=== PATIENT | female | born 1945 | race Caucasian/White ===

== ENCOUNTER 2024-01-16 19:07 | Emergency (ER) | payer MEDICARE, OTHER, SELFPAY ==
--- NOTE | 2024-01-16 18:58 | CT_ITS ---
PROCEDURE INFORMATION: Exam: CTA Neck With Contrast Exam date and time: 01/16/2024 7:03 PM Age: 78 years old Clinical indication: Stroke-like symptoms; Altered mental status/memory loss; Additional info: Possible stroke TECHNIQUE: Imaging protocol: Computed tomographic angiography of the neck with contrast. Exam focused on the cervical segments of the vasculature. 3D rendering (Not supervised by radiologist): MIP and/or 3D reconstructed images were created by the technologist. Radiation optimization: All CT scans at this facility use at least one of these dose optimization techniques: automated exposure control; mA and/or kV adjustment per patient size (includes targeted exams where dose is matched to clinical indication); or iterative reconstruction. Contrast material: ISOUVE 370; Contrast volume: 100 ml; Contrast route: INTRAVENOUS (IV); COMPARISON: CT ANGIO HEAD 01/16/2024 7:03 PM FINDINGS: Right common carotid artery: Mild calcific atherosclerotic disease of the right carotid bulb without stenosis. Right internal carotid artery: No stenosis of the extracranial segment. No dissection or occlusion. Right external carotid artery: No occlusion or stenosis of the origin. Left common carotid artery: No stenosis. No dissection or occlusion. Left internal carotid artery: No stenosis of the extracranial segment. No dissection or occlusion. Left external carotid artery: No occlusion or stenosis of the origin. Right vertebral artery: No stenosis. No dissection or occlusion. Left vertebral artery: No stenosis. No dissection or occlusion. Soft tissues: Normal. No significant soft tissue swelling. Bones/joints: ACDF hardware located at levels C3-C4. Moderate loss of intervertebral disc space with degenerative changes at C4 through T1 with uncovertebral joint and facet osteophytosis resulting in moderate bilateral neural foraminal stenosis at these levels. IMPRESSION: No stenosis or occlusion. REFERENCES: NASCET CRITERIA. The degree of stenosis in the cervical segment of the internal carotid artery is based on NASCET criteria. Normal is no stenosis. Mild is less than 50% stenosis. Moderate is 50-69% stenosis. Severe is 70% to 99% stenosis. Total occlusion is no detectable patent lumen.
--- NOTE | 2024-01-16 18:58 | CT_ITS ---
PROCEDURE INFORMATION: Exam: CT Head Without Contrast Exam date and time: 01/16/2024 6:58 PM Age: 78 years old Clinical indication: Stroke-like symptoms; Altered mental status/memory loss; Additional info: Possible stroke TECHNIQUE: Imaging protocol: Computed tomography of the head without contrast. Radiation optimization: All CT scans at this facility use at least one of these dose optimization techniques: automated exposure control; mA and/or kV adjustment per patient size (includes targeted exams where dose is matched to clinical indication); or iterative reconstruction. Other technique: STROKE PROTOCOL was implemented. COMPARISON: No relevant prior studies available. FINDINGS: Brain: Encephalomalacia of the right temporoparietal lobe compatible with prior stroke. Hypoattenuation with loss of mason-white matter differentiation involving the left temporoparietal region, left occipital region, and right occipital region compatible with ischemia. Cerebral ventricles: No ventriculomegaly. Paranasal sinuses: Visualized sinuses are unremarkable. No fluid levels. Mastoid air cells: Visualized mastoid air cells are well aerated. Bones: Unremarkable. No acute fracture. Soft tissues: Unremarkable. IMPRESSION: Hypoattenuation with loss of mason-white matter differentiation involving the left temporoparietal region, left occipital region, and right occipital region compatible with ischemia. ASSESSMENT: ASPECTS ([place] Stroke Program Early CT Score) is 7.
--- NOTE | 2024-01-16 18:58 | CT_ITS ---
PROCEDURE INFORMATION: Exam: CTA Head With Contrast, Venography Exam date and time: 01/16/2024 7:03 PM Age: 78 years old Clinical indication: Stroke-like symptoms; Altered mental status/memory loss; Additional info: Possible stroke TECHNIQUE: Imaging protocol: Computed tomography angiography of the head with contrast. Exam focused on the veins. 3D rendering (Not supervised by radiologist): MIP and/or 3D reconstructed images were created by the technologist. Radiation optimization: All CT scans at this facility use at least one of these dose optimization techniques: automated exposure control; mA and/or kV adjustment per patient size (includes targeted exams where dose is matched to clinical indication); or iterative reconstruction. Contrast material: ISOUVE 370; Contrast volume: 100 ml; Contrast route: INTRAVENOUS (IV); COMPARISON: CT HEAD/BRAIN WO CON 01/16/2024 6:58 PM FINDINGS: Superior sagittal sinus: Patent. Straight sinus: Patent. Transverse sinuses: Patent. Sigmoid sinuses: Patent. Internal jugular veins: Limited visualized internal jugular veins are patent. ANTERIOR CIRCULATION: Right middle cerebral artery: Moderate noncalcific atherosclerotic disease involving the right M1 segment resulting in moderate stenosis. Left middle cerebral artery: Abrupt cut off of the posterior M3 branches adjacent to the left temporoparietal and left occipital regions. POSTERIOR CIRCULATION: Right posterior cerebral artery: Abrupt cut off of the left and right [employer] P4 segments. Brain: No definite mass, mass effect, or midline shift. Cerebral ventricles: No ventriculomegaly. Soft tissues: Unremarkable. IMPRESSION: 1. Abrupt cut off of the posterior M3 branches adjacent to the left temporoparietal and left occipital regions. 2. Abrupt cut off of the left and right [employer] P4 segments. 3. Moderate noncalcific atherosclerotic disease involving the right M1 segment resulting in moderate stenosis. THIS REPORT CONTAINS FINDINGS THAT MAY BE CRITICAL TO PATIENT CARE. The findings were verbally communicated via telephone conference with Teofilo Castellanos at 7:21 PM EDT on 01/16/2024. The findings were acknowledged and understood.
--- NOTE | 2024-01-16 18:59 | PC.NURSE ---
Pt taken to ct immediately on arrival. Per Maurilio Solorio this pt has a hx of cva and dementia and just came to their facility for the 1st time from [facility] yesterday (01/15/24). FS 173 on arrival.
[2024-01-16 19:08] VITALS: BP 146/58; PULSE 61; O2SAT 98
[2024-01-16] MEDS: 0.9 % SODIUM CHLORIDE 50 ML VIAL IV (19:08)
[2024-01-16] MEDS: SODIUM CHLORIDE 0.9% 10ML SYR (RAD ONLY) 10 ML IV (19:08)
[2024-01-16] MEDS: IOPAMIDOL-370 (76%);100ML BOTTLE 100 ML IV (19:08)
[2024-01-16] MEDS: LACTATED RINGERS 1000ML 1,000 ML 999 ML IV (19:16)
--- NOTE | 2024-01-16 19:21 | PC.NURSE ---
ANTONAD speaking with MD at this time.
[2024-01-16 19:24] LABS: Basophils % 0.5 % (0.1-2.0); Eosinophils # 0.2 K/mm3 (0.0-0.4); Eosinophils % 1.9 % (0.1-12.0); Hematocrit 40.5 % (37.0-47.0); Hemoglobin 13.7 g/dL (12.2-16.2); Lymphocytes # 1.7 K/mm3 (0.7-4.5); Lymphocytes % 20.5 % (10-50); Mean Corpuscular HGB Conc 33.8 g/dL (31.8-35.4); Mean Corpuscular Volume 91.8 fl (81-99); Mean Platelet Volume 7.7 fl (7.4-10.4); Monocytes # 0.4 K/mm3 (0.1-1.0); Monocytes % 4.1 % (1.7-9.3); Neutrophils # 6.1 K/mm3 (1.8-7.8); Platelet Count 186 K/mm3 (142-424); Red Blood Count 4.42 M/mm3 (4.20-5.40); Red Cell Distribution Width 14.2 % (11.5-17.5); White Blood Count 8.4 K/mm3 (4.8-10.8)
[2024-01-16 19:31] VITALS: BP 133/50; BP 146/58; PULSE 58; PULSE 61; RESP 17; TEMP 36; O2SAT 100; BMI 22.7
[2024-01-16 19:39] LABS: Chloride 102 mmol/L (98-107); Sodium 137 mmol/L (136-145)
--- NOTE | 2024-01-16 19:39 | ECG_ITS ---
APPROVED REPORT Exam: Resting ECG HR:66 bpm ECG Measurements Heart Rate 66 AXES VA 158 P 91 QRSd 92 QRS 67 QT 425 T 77 QTc 439 Conclusion sinus rhythm No ischemic change Electronically signed by : MARCELLE ENRIQUE, 01/16/2024 22:19:02
[2024-01-16 19:40] LABS: Potassium 4.1 mmoL/L (3.5-5.1)
[2024-01-16 19:42] LABS: Alanine Aminotransferase 25 U/L (12-78); Alkaline Phosphatase 90 U/L (38-126); Anion Gap 11.1 mEq/L (5-15); Aspartate Amino Transferase 34 U/L (14-36); Bilirubin,Total 0.3 mg/dl (0.2-1.3); Blood Urea Nitrogen 27 mg/dl (7-17); Carbon Dioxide 28 mmol/L (22.0-30.0); Cholesterol 239 mg/dl (140-200); Estimated Glomerular Filt Rate 48 ml/min (>60); GFR (African American) 58 ML/MIN (>60); Total Protein,Serum 6.9 g/dl (6.3-8.2); Triglycerides 120 mg/dl (30-150); VLDL Cholesterol 24 mg/dL (0-40)
[2024-01-16 19:43] LABS: Activated Partial Thrombo Time 25.1 seconds (22.8-30.6); Calcium 9.5 mg/dl (8.4-10.2); Chol/HDL Ratio 4.3 (1-3.5); Glucose 168 mg/dl (74-100); HDL Cholesterol 55 mg/dl (40-60); INR 0.89 (0.9-1.1); Prothrombin Time 10.1 seconds (10.1-12.5)
--- NOTE | 2024-01-16 19:43 | ED_ITS ---
Discharge Plan Disposition Chief Complaint: Neuro Symptoms/Deficit Clinical Impressions Clinical Impression: Acute ischemic left MCA stroke, Acute ischemic left [employer] stroke Stand Alone Forms Stand Alone Forms: Transfer Record - ED Discharge ED Provider: Teofilo Castellanos General Adult HPI General Stated complaint: Unresponsive, hx cva Time Seen by Provider: 01/16/24 19:09 Related Data Allergies Allergy/AdvReac Type Severity Reaction Status Date / Time No Known Allergies Allergy Verified 01/16/24 19:45 [facility] Disclaimer: The information contained in this section may have been updated after the patient was seen, as this information can be updated by other users. Medical History (Updated 01/16/24 @ 19:56 by Teofilo Castellanos MD) Alzheimer dementia Dementia Diabetes CVA (cerebral vascular accident) Social History Smoking Status: Never smoker alcohol intake: never current occupational status: disabled Travel in the last 8 weeks: None ROS Obtained: Yes All systems reviewed & no additional complaints except as documented Physical Exam General General appearance: lethargic and other (Minimally interactive, GCS 8. Breathing spontaneously) Eye Eye exam: Present PERRL ENT ENT exam: Present mucous membranes dry Respiratory Respiratory exam: Present normal lung sounds bilaterally; Absent respiratory distress Cardiovascular Cardiovascular exam: Present regular rate and normal rhythm Abdominal Exam Abdominal exam: Present soft; Absent distention or tenderness Neurological Exam Neurological exam: Present motor sensory deficit (Patient appears to have weakness on the right as compared to the left when withdrawing from pain) and other (GCS 8 (E1, V3, M4)); Absent alert Medical Decision Making Medical Records Medical records reviewed: Yes I reviewed the patient's medical records. [place] Inquiry Pt receiving controlled substance: No [place] was queried for this patient: No Lab Data Lab Results 01/16/24 19:00: Sodium 137, Potassium 4.1, Chloride 102, Carbon Dioxide 28, Anion Gap 11.1, BUN 27 H, Creatinine 1.10 H, Estimated GFR 48 L, Est GFR ( Amer) 58 L, Total Bilirubin 0.3, AST 34, ALT 25, Alkaline Phosphatase 90, Total Protein 6.9, Albumin 3.9, Triglycerides 120, Cholesterol 239 H, VLDL Cholesterol 24 01/16/24 19:00 Orders (Tests/Meds): ED MEDICATIONS Generic Name Dose Route Start Last Admin Trade Name Freq PRN Reason Stop Dose Admin Lactated Ringer's 1,000 mls @ 999 mls/hr 01/16/24 18:58 01/16/24 19:16 Lactated Ringer's 1000 Ml Bag IV 01/16/24 19:58 999 mls/hr .Q1H1M ONE Administration Sodium Chloride 10 ml 01/16/24 18:58 Sodium Chloride 0.9% 10ml Flush Syringe IV 02/15/24 18:57 NEEDED PRN Maintain IV Site Sodium Chloride 10 ml 01/16/24 19:07 01/16/24 19:08 Sodium Chloride 0.9% 10ml Syr (Rad Only) IV 02/15/24 19:06 10 ml NEEDED PRN Administration Maintain IV Site Discontinued Medications Generic Name Dose Route Start Last Admin Trade Name Freq PRN Reason Stop Dose Admin Iopamidol 100 ml 01/16/24 19:07 01/16/24 19:08 Iopamidol-370 (76%);100ml Bottle IV 01/16/24 19:08 100 ml ONCE ONE Administration Sodium Chloride 50 ml 01/16/24 19:07 01/16/24 19:08 0.9 % Sodium Chloride 50 Ml Vial IV 01/16/24 19:08 50 ml ONCE ONE Administration ORDERS Category Date Time Status CT angio head Stat Cat Scan 01/16/24 18:[address] angio neck Stat Cat Scan 01/16/24 18:[address] head/brain wo con Stat Cat Scan 01/16/24 18:58 Completed Activated Partial Thrombo Time Stat Lab 01/16/24 19:00 Received Complete Blood Count Auto Diff Stat Lab 01/16/24 19:00 Received Comprehensive Metabolic Panel Stat Lab 01/16/24 19:00 Results Drug Screen,Urine Stat Lab 01/16/24 18:58 Ordered Ethyl Alcohol Stat Lab 01/16/24 19:00 Received Lipid Panel Stat Lab 01/16/24 19:00 Results Prothrombin Time INR Stat Lab 01/16/24 19:00 Received Troponin I Q3H Lab 01/16/24 22:00 Ordered Troponin I Q3H Lab 01/17/24 01:00 Ordered Troponin I Stat Lab 01/16/24 19:00 Results Urinalysis and Microscopic Stat Lab 01/16/24 18:58 Ordered ECG Request Stat Y 01/16/24 18:58 Ordered Medical Decision Narrative: This is a 78-year-old female history of hypertension, hyperlipidemia, diabetes, recent CVA 5 days prior to this visit presenting with altered mental status. Per EMS, long term facility stated that patient had acute change in mental status about 40 minutes prior to this arrival in the emergency department. Stated that she was slumped over, unresponsive. They laid her on her back, elevated her feet. She was more awake and alert at that time EMS was contacted and patient brought to the department for further evaluation. On arrival, patient has GCS of 8. Does not open her eyes, intermittently monitoring words with provocative testing, withdrawing from pain. Patient's glucose 171. Initial NIH 17, but difficult to assess given patient's inattention and extinction on exam. Patient only moves to pain, aphasic and not speaking, all 4 limbs appear weak, although she is weaker on the right as compared to the left. Patient taken immediately to CT scanner. No intracranial hemorrhage on independent rotation of CT head, But she does have hypoattenuation left temporoparietal region and left occipital region, as well as right occipital region. These are new compared to previous. On CTA of the head, patient has occlusions in posterior M3 on the left as well as bilateral P4 segments. Moderate to severe right-sided M1 stenosis. Patient placed on continuous cardiac monitoring with initial blood pressure 146/58, pulse 61. Also placed on continuous pulse oximetry O2 sat 100 on room air. EKG sinus rhythm 66 beats a minute without ST or T wave changes concerning for acute ischemia. MN, QRS, QT intervals within normal limits. [place] normal. Images sent to [facility] neurosurgery, Dr. Ramirez and Abbi recommended activation of thrombectomy and transferred to emergently. Given recent ischemic stroke, not candidate for tPA/TNK. Because patient high risk for clinical decompensation if discharged, deemed appropriate for transfer and inpatient admission. Results were relayed to patient who voiced understanding and patient was agreeable to transfer, inpatient admission, and management. Patient was graciously accepted and transferred to hospital for further definitive management, under . Critical Care Critical Care Time Critical Care Time: Yes (neuro) Attestation: On , the high probability of a clinically significant, sudden or life threatening deterioration of the following system(s) required my full and direct attention, intervention and personal management. The time I documented below is in addition to time spent performing reported procedures but includes the following listed in this critical care notation. Total Time Total Critical Care Time: 45
--- NOTE | 2024-01-16 19:45 | PC.NURSE ---
Patient was in CT upon this RN's arrival. Patient returned to room, completed triage upon husbands arrival. Patient is responsive to pain, unresponsive to voice. says this is pretty typical behavior since the stroke last Friday. While assessing patient, ANTONAD contacted provider, preparing for emergent transfer to ER for thrombectomy.
--- NOTE | 2024-01-16 19:47 | PC.NURSE ---
[employer] contacted, awaiting return call for clubhouse attendant notified
[2024-01-16 19:50] VITALS: BP 145/59; PULSE 62; RESP 14; O2SAT 99
--- NOTE | 2024-01-16 19:51 | PC.NURSE ---
contacted marquis re: need for disc; spoke with babita
[2024-01-16 19:54] LABS: Direct LDL Cholesterol 137.83 mg/dL (100-129)
[2024-01-16 19:57] LABS: Troponin I < 0.01 ng/ml (0.00-0.034)
--- NOTE | 2024-01-16 19:57 | PC.NURSE ---
Nurse to nurse report to Tiffani FISCHER at ER
[2024-01-16 20:00] VITALS: BP 143/69; PULSE 70; RESP 17; O2SAT 100
[2024-01-16 20:00] LABS: Ethyl Alcohol < 10 mg/dl (0-10)
[2024-01-16 20:21] LABS: Albumin Level 3.9 g/dl (3.5-5.0); Albumin/Globulin Ratio 1.3 (1.1-1.8)
--- NOTE | 2024-01-16 20:33 | PC.NURSE ---
Report given to flight crew, crew preparing for transport.
[2024-01-16 20:37] VITALS: BP 143/69; PULSE 70; RESP 17; TEMP 36.1; O2SAT 100
== END 2024-01-16 20:40 | disposition short-term general hospital (02) ==
PROVIDERS: Emergency Provider Emergency Medicine; PCP Emergency Medicine
DX: I63.512 Cerebral infarction due to unspecified occlusion or stenosis of left middle cerebral artery (principal); I63.532 Cerebral infarction due to unspecified occlusion or stenosis of left posterior cerebral artery; I66.01 Occlusion and stenosis of right middle cerebral artery; R40.2432 Glasgow coma scale score 3-8, at arrival to emergency department; R29.717 NIHSS score 17; E11.9 Type 2 diabetes mellitus without complications; I10 Essential (primary) hypertension; E78.5 Hyperlipidemia, unspecified; F02.80 Dementia in other diseases classified elsewhere, unspecified severity, without behavioral disturbance, psychotic disturbance, mood disturbance, and anxiety; Z86.73 Personal history of transient ischemic attack (TIA), and cerebral infarction without residual deficits
CPT/HCPCS: 70450; 70496; 70498; 80053; 80061; 80320; 84484; 85025; 85610; 85730; 93005; 96360; 99291; G0480; J7120; Q9967